=== PATIENT | female | born 1950 | race Caucasian/White ===

== ENCOUNTER 2017-06-19 13:01 | Emergency (ER) | payer OTHER ==
[2017-06-19 13:34] VITALS: BP 165/93; PULSE 80; TEMP 98.7; BMI 25.4
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
== END 2017-06-19 16:31 | disposition home or self-care (01) ==
LOC: JER 13:01
DX: S63.501A Unspecified sprain of right wrist, initial encounter (principal); S69.81XA Other specified injuries of right wrist, hand and finger(s), initial encounter; V47.6XXA Car passenger injured in collision with fixed or stationary object in traffic accident, initial encounter; Y92.488 Other paved roadways as the place of occurrence of the external cause; Y93.89 Activity, other specified; Y99.8 Other external cause status; I10 Essential (primary) hypertension; E78.00 Pure hypercholesterolemia, unspecified; Z85.3 Personal history of malignant neoplasm of breast
CPT/HCPCS: 73090-TC-RT-FY; 73130-TC-RT-FY; 99282-25